=== PATIENT | male | born 1990 | race Caucasian/White ===

== ENCOUNTER 2023-10-27 11:51 | Emergency (ER) | payer SELFPAY ==
[2023-10-27 12:00] VITALS: BP 113/80; PULSE 104; RESP 18; TEMP 36.6; O2SAT 96; BMI 17.5
--- NOTE | 2023-10-27 12:13 | ED_ITS ---
Discharge Plan Disposition Patient Disposition: Home, Self-Care Condition: Good Prescriptions Prescriptions: New prednisone 20 mg tablet 20 mg PO BID Qty: 10 0RF amoxicillin 500 mg tablet 500 mg PO BID Qty: 20 0RF fluticasone propionate 50 mcg/actuation spray,suspension 1 spray intranasal DAILY 14 Days Qty: 9.9 0RF Referrals Follow up/Referrals: Provider,Referral, MD [Primary Care Provider] - See instructions Activity Restrictions/Add. Instructions Additional Instructions/Restrictions: Start antibiotic patient to take as ordered for a full length of time even if you feel better. Sinus infections do not get better overnight. It may take 2-3 days to notice much improvement so be sure to use conservative measures as discussed for symptoms. Flonase 1 spray each nostril daily to help with nasal congestion, sinus and ear pressure/information Increase fluids Humidifier/vaporizer as needed Tylenol and ibuprofen as needed for fever or pain. If symptoms do not improve or get worse return or be seen in the ER Follow-up with primary care this week continue benadryl as needed if symptoms worsen return Clinical Impressions Clinical Impression: Allergy to bee sting Acute maxillary sinusitis Qualifiers: Recurrence: non-recurrent Qualified Code(s): J01.00 - Acute maxillary sinusitis, unspecified Instructions Patient Instructions: DI for Sinusitis, DI for General Allergic Reactions Discharge ED Provider: Odette ([facility] General Stated complaint: possible allergic reaction, stung by bees Mode of Arrival: Ambulatory Source of Information: Patient Limitations: No Limitations Time Seen by Provider: 10/27/23 12:14 Description of Symptoms (Recalled from Triage Doc. by RN): Pt's symptoms are nasal congestion, was stung by 6 bees, severe itching, and has sun poisining HEENT Symptoms (Recalled from RN notes): Yes Resp Symptoms (Recalled from RN notes): No Skin Symptoms (Recalled from RN notes): Yes MS Symptoms (Recalled from RN notes): No Functional Status (Recalled from RN notes): n/a History of Present Illness Provider Complaint: 33 yr old male presents for c/o nasal congestion, was stung by 6 bees, severe itching, and has sun burn. pt states he was stung 1 hour ago and took Benadryl but still itching, no soa or problems breathing Related Data Previous Rx's Medication Instructions Recorded amoxicillin 500 mg tablet 500 mg PO BID #20 tabs 10/27/23 fluticasone propionate 50 1 spray intranasal DAILY 14 days 10/27/23 mcg/actuation nasal #9.9 mL spray,suspension prednisone 20 mg tablet 20 mg PO BID #10 tabs 10/27/23 Allergies Allergy/AdvReac Type Severity Reaction Status Date / Time bee venom protein (honey bee) Allergy Hives Verified 10/27/23 12:06 Worker's Comp Is this a Worker's Comp case?: No [facility] Disclaimer: The information contained in this section may have been updated after the patient was seen, as this information can be updated by other users. Social History , [employer]) Smoking Status: Smoker, status unknown alcohol intake: never current occupational status: employed Travel in the last 8 weeks: None ROS Obtained: Yes All systems reviewed & no additional complaints except as documented Constitutional Constitutional: Reports system reviewed and no additional complaints, except as documented Eyes Eyes: Reports system reviewed and no additional complaints, except as documented and Denies itchy eyes ENT Ears, Nose, Mouth, and Throat: Reports system reviewed and no additional complaints, except as documented, Reports as per HPI, Denies lip swelling, Reports nasal congestion, Reports nasal discharge, Reports post nasal drip, Denies throat swelling and Denies tongue swelling Cardiovascular Cardiovascular: Reports system reviewed and no additional complaints, except as documented Respiratory Respiratory: Reports system reviewed and no additional complaints, except as documented and Denies wheezing Musculoskeletal Musculoskeletal: Reports system reviewed and no additional complaints, except as documented Integumentary/Breasts Skin/Breast: Reports system reviewed and no additional complaints, except as documented, Reports as per HPI, Reports pruritus and Reports rash Neurologic Neurologic: Reports system reviewed and no additional complaints, except as documented Endocrine Endocrine: Reports system reviewed and no additional complaints, except as documented Allergic/Immunologic Allergic/Immunologic: Reports system reviewed and no additional complaints, except as documented, Reports as per HPI, Denies itchy eyes, Denies lip swelling, Denies throat swelling, Denies tongue swelling, Reports urticaria and Denies wheezing Physical Exam General General appearance: alert and in no apparent distress Eye Eye exam: Present normal appearance ENT ENT exam: Present normal exam, normal oropharynx, mucous membranes moist and TM's normal bilaterally Respiratory Respiratory exam: Present normal lung sounds bilaterally Cardiovascular Cardiovascular exam: Present regular rate and normal rhythm Neurological Exam Neurological exam: Present alert and oriented X3 Skin Skin exam: Present warm and rash Expanded Skin Exam Type of lesion: Present rash Distribution: generalized Body image: 2 1. sun burn 2. bee sting 3. bee sting 4. bee sting 5. bee sting 6. bee sting 7. bee sting Medical Decision Making Medical Records Medical records reviewed: Yes I reviewed the patient's medical records. Yobani Inquiry Pt receiving controlled substance: No Yobani was queried for this patient: No Vital Signs: 10/27/23 12:00 Temperature 97.9 F Temperature Source Oral Pulse Rate [Right Radial] 104 H Respiratory Rate 18 Blood Pressure [Right Arm] 113/80 Blood Pressure Mean [Right Arm] 91 Blood Pressure Source [Right Arm] Automatic Cuff Blood Pressure Position [Right Arm] Sitting 02 Sat by Pulse Oximetry 96 Oxygen Delivery Method Room Air
[2023-10-27] MEDS: DEXAMETHASONE 4MG/ML 1ML VIAL 4 MG IM (12:15)
[2023-10-27] MEDS: FAMOTIDINE 20MG TABLET 20 MG PO (12:15)
[2023-10-27 12:38] VITALS: BP 113/80; PULSE 104; RESP 18; TEMP 36.6; O2SAT 96
== END 2023-10-27 12:38 | disposition home or self-care (01) ==
PROVIDERS: Emergency Provider Nurse Practitioner Family
DX: T63.441A Toxic effect of venom of bees, accidental (unintentional), initial encounter (principal); J01.00 Acute maxillary sinusitis, unspecified
CPT/HCPCS: 96372; 99204; 99212; G0463; J1100